=== PATIENT | female | born 1945 | race Caucasian/White ===

== ENCOUNTER 2017-06-12 11:20 | Emergency (ER) | payer OTHER, BC ==
[~2017-06-12] VITALS: Ht 152.4 cm; Wt 66.5 kg
[~2017-06-12 11:20] MED LIST: ALTACE10 MG PO; ASPIRIN81 M1 PO; CALCIUM + VITA1 EACH PO; CALCIUM 500 +1 EACH PO; CELEBREX200 MG PO; CIPRO500 MG PO; CIPROFLOXACIN500 M1 PO; CRANBERRY TABL1 EACH PO; CRESTOR10 MG PO; CYCLOBENZAPRINE10 MG PO; DICYCLOMINE HCL20 MG PO; EFFEXOR XR75 MG PO; FERROUS SULFAT325 MG PO; FLAGYL500 MG PO; HYDROCHLOROTH12.5 M1 PO; HYDROCHLOROTH12.5 M3 PO; HYDROCODON-ACE1 EAC7 PO; LO-DOSE ASPIRIN81 M1 PO; METRONIDAZOLE500 MG PO; NAPROSYN250 MG PO; NAPROXEN250 MG PO; PLAVIX75 MG PO; PRAVACHOL20 MG PO; PRAVASTATIN SOD20 MG PO; TYLENOL EXTRA500 MG PO; TYLENOL REGULA325 MG PO; VICODIN,LORT1 TABLET PO
[2017-06-12 12:27] VITALS: BP 160/103
== END 2017-06-12 12:44 | disposition left against medical advice (07) ==
LOC: EME 11:20
DX: S80.12XA Contusion of left lower leg, initial encounter (principal); Z53.21 Procedure and treatment not carried out due to patient leaving prior to being seen by health care provider